=== PATIENT | female | born 1955 | race African-American/Black ===

== ENCOUNTER 2017-08-01 05:57 | Emergency (ER) | payer OTHER ==
[~2017-08-01] VITALS: Ht 162.6 cm; Wt 87.0 kg
[2017-08-01 08:46] LABS: CLARITY URINE CLEAR (CLEAR); COLOR URINE YELLOW (YELLOW); GLUCOSE URINE NEGATIVE (NEGATIVE); KETONES URINE NEGATIVE (NEGATIVE); LEUKOCYTE ESTERASE URINE NEGATIVE (NEGATIVE); NITRITE URINE NEGATIVE (NEGATIVE); OCCULT BLOOD URINE NEGATIVE (NEGATIVE); PROTEIN URINE NEGATIVE (NEGATIVE); UROBILINOGEN URINE 0.2 E.U./dL (0.2-1.0)
[2017-08-01] MEDS ORDERED: KETOROLAC 60MG/2ML VIAL IM ONE (09:45)
[2017-08-01 10:59] VITALS: BP 134/71
== END 2017-08-01 11:02 | disposition home or self-care (01) ==
LOC: ER 08:02
DX: M54.9 Dorsalgia, unspecified (principal); I10 Essential (primary) hypertension
CPT/HCPCS: 81003; 96372; 99283; J1885

== ENCOUNTER 2019-09-28 11:48 | Emergency (ER) | payer BC, OTHER ==
[~2019-09-28] VITALS: Ht 165.1 cm; Wt 90.0 kg
[2019-09-28 13:45] VITALS: BP 158/89
== END 2019-09-28 13:46 | disposition home or self-care (01) ==
LOC: ER 11:48
DX: Z48.00 Encounter for change or removal of nonsurgical wound dressing (principal); T21.05XA Burn of unspecified degree of buttock, initial encounter; X08.8XXA Exposure to other specified smoke, fire and flames, initial encounter; Y93.89 Activity, other specified; Y92.018 Other place in single-family (private) house as the place of occurrence of the external cause
CPT/HCPCS: 99281